=== PATIENT | male | born 1990 | race Caucasian/White ===

== ENCOUNTER 2025-07-11 08:41 | Emergency (ER) | payer OTHER ==
[~2025-07-11] VITALS: Ht 185.4 cm; Wt 117.9 kg
[2025-07-11 09:53] LABS: Source, Urine Clean Catch
[2025-07-11 10:01] LABS: Bilirubin, Urine Neg (Neg); Color, Urine Yellow (P-Yellow); Glucose Qualitative, Urine Neg (Neg); Ketones, Urine Neg (Neg); Leukocyte Esterase, Urine 3+ (Neg); Protein, Urine 2+ (Neg); Specific Gravity, Urine 1.020 (1.003-1.022); Urobilinogen, Urine NORM (Normal)
[2025-07-11 10:11] LABS: White Blood Cells, Urine 50-100 /hpf (0-5)
[2025-07-11 10:12] LABS: Red Blood Cells, Urine 50-100 /hpf (0-2)
[2025-07-11] MEDS ORDERED: CEFP200 PO (12:21)
[2025-07-11] MEDS ORDERED: ATHLETE'S FOO35.4 GM TOP (12:21)
[2025-07-11 12:49] VITALS: BP 141/98
== END 2025-07-11 12:50 | disposition home or self-care (01) ==
LOC: ER 08:41
PROVIDERS: Student in an Organized Health Care Education/Training Program
DX: N39.0 Urinary tract infection, site not specified (principal); B35.6 Tinea cruris; R31.9 Hematuria, unspecified; R80.9 Proteinuria, unspecified
CPT/HCPCS: 76870; 81001; 87077; 87086; 87186; 99284-25